=== PATIENT | female | born 1975 | race Two or more races ===

== ENCOUNTER 2020-04-22 15:45 | Emergency (ER) | payer MEDICAID, OTHER ==
[~2020-04-22] VITALS: Ht 157.5 cm; Wt 88.0 kg
[2020-04-22 16:33] VITALS: BP 131/69
[2020-04-22] MEDS ORDERED: ACETAMINOPHEN 500 MG TAB PO ONE ×2 (17:30→17:49)
== END 2020-04-22 18:07 | disposition home or self-care (01) ==
LOC: ER 15:45
DX: S39.012A Strain of muscle, fascia and tendon of lower back, initial encounter (principal); Z88.0 Allergy status to penicillin; V43.52XA Car driver injured in collision with other type car in traffic accident, initial encounter; Y93.89 Activity, other specified; Y92.488 Other paved roadways as the place of occurrence of the external cause; Y99.8 Other external cause status

== ENCOUNTER 2021-09-14 08:27 | Emergency (ER) | payer MEDICAID ==
[~2021-09-14] VITALS: Ht 157.5 cm; Wt 82.0 kg
[2021-09-14 08:44] VITALS: BP 146/66
== END 2021-09-14 09:14 | disposition home or self-care (01) ==
LOC: ER 08:27
DX: S63.616A Unspecified sprain of right little finger, initial encounter (principal); Z98.51 Tubal ligation status; Z88.0 Allergy status to penicillin; Z91.041 Radiographic dye allergy status; Z98.890 Other specified postprocedural states; X50.1XXA Overexertion from prolonged static or awkward postures, initial encounter; Y93.89 Activity, other specified; Y92.89 Other specified places as the place of occurrence of the external cause; Y99.8 Other external cause status
CPT/HCPCS: 29130; 73140; 99283; J7030